=== PATIENT | male | born 1970 | race Caucasian/White ===

== ENCOUNTER 2017-05-25 23:16 | Emergency (ER) | payer BC ==
[2017-05-25 23:25] VITALS: BP 156/94
[2017-05-25] MEDS ORDERED: Albuterol/Ipratropium 3.0-0.5 MG/3 ML Neb Soln NEB ONE (23:59)
--- NOTE | 2017-05-26 01:48 | EDM.PDOC ---
ED HPI GENERAL MEDICAL PROBLEM - General Chief Complaint: Respiratory Problem Stated Complaint: SHORTNESS OF BREATH Time Seen by Provider: 05/25/17 23:44 Source of Information: Reports: Patient, RN Notes Reviewed - History of Present Illness INITIAL COMMENTS - FREE TEXT/NARRATIVE: 47-year-old male comes in with shortness of breath. He eats he was lying in bed about to go to sleep when he felt like he was much more short of breath than usual. He also has noticed recently that he does get short of breath quite easily with exertion. He has not been coughing any more than usual recently. No chest pain, abdominal pain nausea or vomiting. He believes that he is in relatively decent health although he admits he is no longer near as physically active as he used to be. 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 - Related Data Allergies Allergy/AdvReac Type Severity Reaction Status Date / Time No Known Allergies Allergy Verified 05/25/17 23:24 Home Meds: Home Meds Hydrochlorothiazide 12.5 mg PO DAILY 05/25/17 [History] Levothyroxine 75 mcg PO ACBREAKFAST 05/25/17 [History] carBAMazepine [Carbamazepine] 400 mg PO BEDTIME 05/25/17 [History] carBAMazepine [Carbamazepine] 500 mg PO BID 05/25/17 [History] Past Medical History Cardiovascular History: Reports: Hypertension Endocrine/Metabolic History: Reports: Hypothyroidism Social & Family History - Tobacco Use Smoking Status *Q: Never Smoker Second Hand Smoke Exposure: No - Recreational Drug Use Recreational Drug Use: No ED ROS GENERAL - Review of Systems Review Of Systems: See Below Constitutional: Denies: Fever, Chills, Diaphoresis HEENT: Denies: Sinus Problem, Throat Pain Respiratory: Reports: Shortness of Breath, Cough. Denies: Wheezing, Pleuritic Chest Pain Cardiovascular: Denies: Chest Pain (Occasional), Lightheadedness GI/Abdominal: Denies: Abdominal Pain, Nausea, Vomiting Musculoskeletal: Denies: Neck Pain, Shoulder Pain, Arm Pain Skin: Reports: No Symptoms Neurological: Reports: Dizziness (Mild gone) ED EXAM, GENERAL - Physical Exam Exam: See Below General Appearance: Alert, No Apparent Distress Throat/Mouth: Normal Inspection, Normal Oropharynx Head: No: Facial Swelling Neck: Supple, Full Range of Motion, Other. No: Lymphadenopathy (L), Lymphadenopathy (R) Respiratory/Chest: No Respiratory Distress (No JVD), Lungs Clear, Normal Breath Sounds Cardiovascular: Regular Rate, Rhythm GI/Abdominal: Soft, Non-Tender Back Exam: No: CVA Tenderness (L), CVA Tenderness (R) Extremities: Normal Inspection. No: Pedal Edema, Leg Pain, Increased Warmth, Redness Neurological: Alert, Oriented, No Motor/Sensory Deficits Skin Exam: Warm, Dry, Normal Color Course - Vital Signs Last Recorded V/S: Last Vital Signs Temp 97.3 F 05/25/17 23:22 Pulse 75 05/25/17 23:22 Resp 16 05/25/17 23:22 BP 156/94 H 05/25/17 23:22 Pulse Ox 94 L 05/26/17 00:00 - Orders/Labs/Meds Orders: Active Orders 24 hr Category Date Time Status EKG 12 Lead [EKG Documentation Completion] [RC] STAT Care 05/25/17 23:59 Active RT Aerosol Therapy [RC] ASDIRECTED Care 05/26/17 00:00 Active CXR [Chest 2V] [CR] Stat Exams 05/25/17 23:59 Taken Labs: Laboratory Tests 05/25/17 05/26/17 05/26/17 Range/Units 23:59 00:15 00:15 WBC 5.38 (4.23-9.07) K/mm3 RBC 4.38 L (4.63-6.08) M/mm3 Hgb 14.1 (13.7-17.5) gm/L Hct 41.0 (40.1-51.0) % MCV 93.6 H (79.0-92.2) fl MCH 32.2 (25.7-32.2) pg MCHC 34.4 (32.2-35.5) g/dl RDW Std Deviation 43.1 (35.1-43.9) fL Plt Count 201 (163-337) K/mm3 MPV 8.6 L (9.4-12.3) fl Neut % (Auto) 63.8 (34.0-67.9) % Lymph % (Auto) 20.6 L (21.8-53.1) % [place] % (Auto) 12.6 H (5.3-12.2) % Eos % (Auto) 2.4 (0.8-7.0) Baso % (Auto) 0.4 (0.1-1.2) % Neut # (Auto) 3.43 (1.78-5.38) K/mm3 Lymph # (Auto) 1.11 L (1.32-3.57) K/mm3 [place] # (Auto) 0.68 (0.30-0.82) K/mm3 Eos # (Auto) 0.13 (0.04-0.54) K/mm3 Baso # (Auto) 0.02 (0.01-0.08) K/mm3 D-Dimer, Quantitative < 0.19 L (0.19-0.59) mg/L Sodium 140 (136-145) mEq/L Potassium 3.8 (3.5-5.1) mEq/L Chloride 103 (98-107) mEq/L Carbon Dioxide 26 (21-32) mEq/L Anion Gap 14.8 (5-15) BUN 23 H (7-18) mg/dL Creatinine 1.0 (0.7-1.3) mg/dL Est Cr Clr Drug Dosing 100.23 mL/min Estimated GFR (MDRD) > 60 (>60) mL/min BUN/Creatinine Ratio 23.0 H (14-18) Glucose 102 (74-106) mg/dL Calcium 8.6 (8.5-10.1) mg/dL Total Bilirubin 0.2 (0.2-1.0) mg/dL AST 26 (15-37) U/L ALT 29 (16-63) U/L Alkaline Phosphatase 65 (46-116) U/L NT-Pro-B Natriuret Pep 28 (0-125) pg/mL Total Protein 7.0 (6.4-8.2) g/dl Albumin 3.7 (3.4-5.0) g/dl Globulin 3.3 gm/dL Albumin/Globulin Ratio 1.1 (1-2) Meds: Medications Discontinued Medications Generic Name Dose Route Start Last Admin Trade Name Freq PRN Reason Stop Dose Admin Albuterol/Ipratropium 3 ml 05/25/17 23:59 05/26/17 00:10 Duoneb 3.0-0.5 Mg/3 Ml NEB 05/26/17 00:00 3 ml ONETIME ONE Administration - Re-Assessments/Exams Free Text/Narrative Re-Assessment/Exam: 05/26/17 03:34 Of note when I initially walked into the room and patient is lying flat sats were only in the 91-92% range. When I did have him sit up and listen to his lungs they did climb to the 95-97% range. He does state that multiple family members including siblings and I believe one or 2 of his parents do suffer from sleep apnea and do use CPAP machines at night.. He states he has had increasing fatigue over the past year or 2. 05/26/17 03:35. D-dimer and other labs did come back relatively normal. EKG did not show acute changes chest x-ray normal. I am going to get him set up for a sleep study. He is moderately overweight and may have obesity hypoventilation syndrome and/or sleep apnea. Departure - Departure Time of Disposition: 01:45 Disposition: Home, Self-Care 01 Condition: Fair Clinical Impression: Dyspnea, paroxysmal nocturnal Fatigue Qualifiers: Fatigue type: unspecified Qualified Code(s): R53.83 - Other fatigue - Discharge Information Instructions: Shortness of Breath, [id number], Fatigue Referrals: Eldon Ambrose MD [Primary Care Provider] - Forms: ED Department Discharge Additional Instructions: Your heart and lungs checked out well this evening. Sleep study test. If you are not given that time upon discharge respiratory therapy will call you this morning for a time. [place] next as planned. Consider a healthy diet and regular exercise program to help improve your general health and well- being. Return to ED as needed if symptoms worsening in any way. - My Orders Last 24 Hours: My Active Orders 05/25/17 23:59 EKG 12 Lead [EKG Documentation Completion] [RC] STAT CXR [Chest 2V] [CR] Stat 05/26/17 00:00 RT Aerosol Therapy [RC] ASDIRECTED - Assessment/Plan Last 24 Hours: My Active Orders 05/25/17 23:59 EKG 12 Lead [EKG Documentation Completion] [RC] STAT CXR [Chest 2V] [CR] Stat 05/26/17 00:00 RT Aerosol Therapy [RC] ASDIRECTED
--- NOTE | 2017-05-26 06:56 | CR ---
Chest: Two views of the chest were obtained. Comparison: No previous chest x-ray. Heart size and mediastinum are within normal limits. Lungs are clear. Slight degenerative change is seen within the spine. Minimal scoliosis is also noted. Impression: 1. Incidental findings. Nothing acute is appreciated. Diagnostic code #2
== END 2017-05-26 02:17 | disposition home or self-care (01) ==
LOC: JD.ED 23:16
DX: R06.00 Dyspnea, unspecified (principal); R53.83 Other fatigue; I10 Essential (primary) hypertension; E03.9 Hypothyroidism, unspecified; Z79.899 Other long term (current) drug therapy
CPT/HCPCS: 36415; 71020; 71020-26; 80053; 83880; 85025; 85379; 93005; 94640; 99285-25

== ENCOUNTER 2017-06-28 08:47 | Emergency (ER) | payer BC ==
[2017-06-28 08:55] VITALS: BP 145/91
--- NOTE | 2017-06-28 09:39 | EDM.PDOCBH ---
ED HPI GENERAL MEDICAL PROBLEM - General Chief Complaint: Behavioral/Psych Stated Complaint: DEPRESSION Time Seen by Provider: 06/28/17 08:58 Source of Information: Reports: Patient History Limitations: Reports: Other (hesitant to provide history) - History of Present Illness INITIAL COMMENTS - FREE TEXT/NARRATIVE: The patient is a 47-year-old male with a history of a seizure disorder and hypothyroidism who comes to the emergency department with a chief complaint of feeling depressed. The patient is very reticent and withdrawn and it was quite difficult for me to obtain much history from him. He tells me that he's been feeling poorly for about 3 days now. States that he's feeling very depressed. He 's been having very disturbing thoughts, he is now willing to share details with me but states that they are sexual in nature. He's had very poor sleep. States that he is hardly slept since Thursday. He is feeling very down and sad. She feels like something is deeply wrong but has difficulty providing further details. States he's never felt like this before. He's never seen a psychiatrist or been on psychiatric medications. He doesn't identify any recent stressors or provoking factors. No recent illness. He lives with his brother with whom he states he has a good relationship and works on a farm. States that there has not been any particular work-related stress lately. Later, during the physical exam and the later discussion, he mentions various somatic fears. He mentions that an acquaintance had headaches and turned out to have brain cancer. Another person he knew felt a mass in her neck and it turned out to be cancer. He now feels like he has some discomfort in his neck and is also worried that his symptoms could be a sign of brain cancer. He also recounts stories to me of people he knew who saw doctors and then "dropped in the hallway" after being told that they were fine. And then he also became very tearful and states that he knew of couple of guys who shot himself. Upon further questioning, he states that he is not suicidal but worries that he could do something like that to harm himself if he were to get worse. He told his brother this morning that he was feeling sick and asked his brother to bring him to the emergency department. - Related Data Allergies Allergy/AdvReac Type Severity Reaction Status Date / Time No Known Allergies Allergy Verified 06/28/17 08:51 Home Meds: Home Meds Hydrochlorothiazide 12.5 mg PO DAILY 05/25/17 [History] Levothyroxine 75 mcg PO ACBREAKFAST 05/25/17 [History] carBAMazepine [Carbamazepine] 400 mg PO BEDTIME 05/25/17 [History] carBAMazepine [Carbamazepine] 500 mg PO BID 05/25/17 [History] LORazepam [Ativan] 0.5 mg PO BID #20 tablet 06/28/17 [Rx] QUEtiapine [SEROquel] 50 mg PO BEDTIME #30 tablet 06/28/17 [Rx] Past Medical History HEENT History: Reports: Impaired Vision Cardiovascular History: Reports: Hypertension Neurological History: Reports: Other (See Below) Other Neuro History: epilepsy Endocrine/Metabolic History: Reports: Hypothyroidism - Infectious Disease History Infectious Disease History: Reports: Chicken Pox Social & Family History - Tobacco Use Smoking Status *Q: Never Smoker Second Hand Smoke Exposure: No - Caffeine Use Caffeine Use: Reports: None - Recreational Drug Use Recreational Drug Use: No ED ROS GENERAL - Review of Systems Review Of Systems: See Below Constitutional: Reports: Malaise. Denies: Fever HEENT: Reports: No Symptoms Respiratory: Denies: Shortness of Breath Cardiovascular: Denies: Chest Pain Endocrine: Reports: Fatigue GI/Abdominal: Reports: No Symptoms Musculoskeletal: Reports: Neck Pain Skin: Reports: No Symptoms Neurological: Denies: Headache Psychiatric: Reports: Anxiety, Depression. Denies: Hallucinations ED EXAM, BEHAVIORAL HEALTH - Physical Exam Exam: See Below Exam Limited By: No Limitations General Appearance: Alert, Other (Withdrawn) Eye Exam: Bilateral Eye: EOMI, Normal Inspection, PERRL Ears: Normal External Exam Nose: Normal Inspection Throat/Mouth: Normal Inspection, Normal Voice, No Airway Compromise Head: Atraumatic, Normocephalic Neck: Normal Inspection, Supple, Non-Tender, Full Range of Motion Respiratory/Chest: No Respiratory Distress, Lungs Clear, Normal Breath Sounds, Chest Non-Tender Cardiovascular: Normal Peripheral Pulses, Regular Rate, Rhythm, No Murmur GI/Abdominal: Soft, Non-Tender, No Distention. No: Rebound Back Exam: Normal Inspection Extremities: Normal Inspection Neurological: Alert, CN II-XII Intact, Normal Cognition, No Motor/Sensory Deficits, Oriented x 3 Psychiatric: Alert, Depressed Mood, Flat Affect, Tearful, Poor Eye Contact, Withdrawn, Paranoid Thoughts Skin Exam: Warm, Dry, Intact, Normal color, No rash COURSE, BEHAVIORAL HEALTH COMP - Course Vital Signs: Last Vital Signs Temp 36.2 C 06/28/17 08:53 Pulse 65 06/28/17 08:53 Resp 16 06/28/17 08:53 BP 145/91 H 06/28/17 08:53 Pulse Ox 100 06/28/17 08:53 Orders, Labs, Meds: Laboratory Tests 06/28/17 06/28/17 06/28/17 Range/Units 09:46 09:46 09:46 WBC 4.77 (4.23-9.07) K/mm3 RBC 5.00 (4.63-6.08) M/mm3 Hgb 15.7 (13.7-17.5) gm/L Hct 46.0 (40.1-51.0) % MCV 92.0 (79.0-92.2) fl MCH 31.4 (25.7-32.2) pg MCHC 34.1 (32.2-35.5) g/dl RDW Std Deviation 42.6 (35.1-43.9) fL Plt Count 227 (163-337) K/mm3 MPV 8.4 L (9.4-12.3) fl Neut % (Auto) 75.5 H (34.0-67.9) % Lymph % (Auto) 13.8 L (21.8-53.1) % [place] % (Auto) 10.3 (5.3-12.2) % Eos % (Auto) 0.2 L (0.8-7.0) Baso % (Auto) 0.2 (0.1-1.2) % Neut # (Auto) 3.60 (1.78-5.38) K/mm3 Lymph # (Auto) 0.66 L (1.32-3.57) K/mm3 [place] # (Auto) 0.49 (0.30-0.82) K/mm3 Eos # (Auto) 0.01 L (0.04-0.54) K/mm3 Baso # (Auto) 0.01 (0.01-0.08) K/mm3 Sodium 140 (136-145) mEq/L Potassium 3.8 (3.5-5.1) mEq/L Chloride 100 (98-107) mEq/L Carbon Dioxide 29 (21-32) mEq/L Anion Gap 14.8 (5-15) BUN 13 (7-18) mg/dL Creatinine 1.1 (0.7-1.3) mg/dL Est Cr Clr Drug Dosing 91.12 mL/min Estimated GFR (MDRD) > 60 (>60) mL/min BUN/Creatinine Ratio 11.8 L (14-18) Glucose 102 (74-106) mg/dL Calcium 9.5 (8.5-10.1) mg/dL Total Bilirubin 0.5 (0.2-1.0) mg/dL AST 25 (15-37) U/L ALT 25 (16-63) U/L Alkaline Phosphatase 76 (46-116) U/L Total Protein 7.9 (6.4-8.2) g/dl Albumin 4.3 (3.4-5.0) g/dl Globulin 3.6 gm/dL Albumin/Globulin Ratio 1.2 (1-2) Free T4 0.97 (0.76-1.46) ng/dL TSH 3rd Generation 3.257 (0.358-3.74) uIU/mL Salicylates 1.6 L (2.8-20) mg/dL Urine Opiates Screen (NEGATIVE) Ur Buprenorphine Scrn (NEGATIVE) Ur Oxycodone Screen (NEGATIVE) Urine Methadone Screen (NEGATIVE) Ur Propoxyphene Screen (NEGATIVE) Acetaminophen 0 L (10-30) ug/mL Ur Barbiturates Screen (NEGATIVE) Ur Tricyclics Screen (NEGATIVE) Ur Phencyclidine Scrn (NEGATIVE) Ur Amphetamine Screen (NEGATIVE) U Methamphetamines Scrn (NEGATIVE) U Benzodiazepines Scrn (NEGATIVE) U Cocaine Metab Screen (NEGATIVE) U Marijuana (THC) Screen (NEGATIVE) Ethyl Alcohol 0.00 (0.00) gm% 06/28/17 Range/Units 11:03 WBC (4.23-9.07) K/mm3 RBC (4.63-6.08) M/mm3 Hgb (13.7-17.5) gm/L Hct (40.1-51.0) % MCV (79.0-92.2) fl MCH (25.7-32.2) pg MCHC (32.2-35.5) g/dl RDW Std Deviation (35.1-43.9) fL Plt Count (163-337) K/mm3 MPV (9.4-12.3) fl Neut % (Auto) (34.0-67.9) % Lymph % (Auto) (21.8-53.1) % [place] % (Auto) (5.3-12.2) % Eos % (Auto) (0.8-7.0) Baso % (Auto) (0.1-1.2) % Neut # (Auto) (1.78-5.38) K/mm3 Lymph # (Auto) (1.32-3.57) K/mm3 [place] # (Auto) (0.30-0.82) K/mm3 Eos # (Auto) (0.04-0.54) K/mm3 Baso # (Auto) (0.01-0.08) K/mm3 Sodium (136-145) mEq/L Potassium (3.5-5.1) mEq/L Chloride (98-107) mEq/L Carbon Dioxide (21-32) mEq/L Anion Gap (5-15) BUN (7-18) mg/dL Creatinine (0.7-1.3) mg/dL Est Cr Clr Drug Dosing mL/min Estimated GFR (MDRD) (>60) mL/min BUN/Creatinine Ratio (14-18) Glucose (74-106) mg/dL Calcium (8.5-10.1) mg/dL Total Bilirubin (0.2-1.0) mg/dL AST (15-37) U/L ALT (16-63) U/L Alkaline Phosphatase (46-116) U/L Total Protein (6.4-8.2) g/dl Albumin (3.4-5.0) g/dl Globulin gm/dL Albumin/Globulin Ratio (1-2) Free T4 (0.76-1.46) ng/dL TSH 3rd Generation (0.358-3.74) uIU/mL Salicylates (2.8-20) mg/dL Urine Opiates Screen Negative (NEGATIVE) Ur Buprenorphine Scrn Negative (NEGATIVE) Ur Oxycodone Screen Negative (NEGATIVE) Urine Methadone Screen Negative (NEGATIVE) Ur Propoxyphene Screen Negative (NEGATIVE) Acetaminophen (10-30) ug/mL Ur Barbiturates Screen Negative (NEGATIVE) Ur Tricyclics Screen Negative (NEGATIVE) Ur Phencyclidine Scrn Negative (NEGATIVE) Ur Amphetamine Screen Negative (NEGATIVE) U Methamphetamines Scrn Negative (NEGATIVE) U Benzodiazepines Scrn Negative (NEGATIVE) U Cocaine Metab Screen Negative (NEGATIVE) U Marijuana (THC) Screen Negative (NEGATIVE) Ethyl Alcohol (0.00) gm% Re-Assessment/Re-Exam: Labs unremarkable. Video consult completed with Dr. Diaz. Dr. Diaz feels the patient is safe for discharge. He recommends starting Seroquel 50 mg at bedtime and also a short-term prescription for Ativan 0.5 mg twice a day. I discussed this with the patient as well. He is to follow-up with his primary doctor and also to call to schedule an appointment to follow-up with psychiatry clinic here. Discussed return precautions. Patient understood. Departure - Departure Time of Disposition: 11:15 Disposition: Home, Self-Care 01 Clinical Impression: Anxiety about health Depression Qualifiers: Depression Type: other depression Qualified Code(s): F32.89 - Other specified depressive episodes - Discharge Information Prescriptions: LORazepam [Ativan] 0.5 mg PO BID #20 tablet QUEtiapine [SEROquel] 50 mg PO BEDTIME #30 tablet Instructions: Insomnia Referrals: Eldon Ambrose MD [Primary Care Provider] - Forms: ED Department Discharge Additional Instructions: 1. Take Seroquel (quetiapine) at night as prescribed. This medication may be continued by your primary doctor if it is helpful. 2. Take lorazepam (ativan) as prescribed. This will help you feel calm and may also help you with sleep. This is a short-term medication that Dr. Diaz recommends to help you over the next several days until you're feeling better. 3. Follow up with Dr. Ambrose as soon as possible for further care, ideally this week. You may also follow up with psychiatry clinic at the hospital as needed - call [phone] to schedule. 4. Please return to the Emergency Department any time for any new or worsening symptoms, including if you're feeling unsafe.
[2017-06-28 10:22] LABS: ACETAMINOPHEN 0 ug/mL (10-30)
--- NOTE | 2017-06-29 11:35 | CONS ---
CONSULTING PHYSICIAN: Lino Diaz MD DATE OF CONSULTATION: 06/28/2017 IDENTIFICATION: The patient is a 47-year-old male, who presents to the [facility] Emergency Room in [place], [place]. He is seen for psychiatric consult. CHIEF COMPLAINT: "I just don't feel good, you know, overall." HISTORY OF PRESENT ILLNESS: The patient is a 47-year-old male, reports that he has been experiencing depressed mood, "for about the last 3 days." He states that he is "just sad and depressed" at the moment and he notes that while he struggles with up and down mood, it is actually going on "for years," things have worsened, particularly over the past few days. The patient states he is unable to sleep and his mind will not shut down. He endorses a lot of racing thoughts, rumination, some lonely feelings, "a little bit of anxiety" too. He states that while there has not been anything going on in his personal life, it has been upsetting that he knows, "there were 2 suicides in the town last week." He states that he currently resides in [place] and did not know the individuals, but he states "I just do not want that to happen to me." He denies any suicidal or homicidal ideation. He denies any psychotic, delusional, or paranoid symptoms, but he does note that since he has been feeling more depressed and anxious and a little bit lonely, he just does not want things to get worse. He states this is especially so because he has a hard time slowing his mind down lately. He has good interest in things, but he has lack of energy and lack of appetite for the past 6 months. He notes, "I feel bloated" a lot. He does state that he has a history of hypothyroidism as well as seizure disorder, but he notes his last seizure was back in 2006. Again, he is denying any suicidal or homicidal. He denying any illicit substance use or excessive alcohol use complicating his clinical picture. He states if he could get something to help him with his racing thoughts and ruminations and his mood, he expects he would feel better. He does report that he has guns in the house, but they are under lock and roa and is again emphasizing he is not having any suicidal ideation whatsoever. He lives with his brother who is also the individual who brought him into the emergency room today and his brother will be able to watch him. The patient does not feel he needs hospitalization at this point in time but again rather wants to get help for his excessive worries and low mood and anxiety. MEDICATIONS: At time of presentation: 1. Carbamazepine. 2. Levothyroxine. ALLERGIES: No known drug allergies. PAST MEDICAL HISTORY: 1. Seizure disorder, grand mal type. Last seizure in 2006, was diagnosed with this condition in 1986. 2. Hypothyroidism. 3. Hypertension. REVIEW OF SYSTEMS: Aside from neuro, endocrine, cardiovascular, all other major organ systems are negative at this point in time for acute difficulties or complications. FAMILY PSYCHIATRIC AND CD HISTORY: The patient reports he had a paternal aunt who had a history of mental health issues, but he did not know the specifics. She is now. PAST PSYCHIATRIC AND CD HISTORY: Essentially negative. The patient denies any previous psychiatric hospitalizations, chemical dependency treatments, previous suicide attempts, self-injurious behaviors, or eating disorder history. Denies any abuse issues. He has never been on any psychiatric medications. His primary MD is Dr. Ambrose at [facility]. SOCIAL HISTORY: The patient was born and raised in [place], [place]. He is the 7th of 8 siblings, having 5 sisters and 2 brothers. The patient's parents were throughout his childhood and adolescence. Father was a daugherty. Mother was a homemaker. The patient's highest level of education is high school diploma. 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 He has never been , not involved in any current relationships. He does not have any children. Describes his sexual predisposition as heterosexual. Again he lives in [place], [place] with his brother. He denies any prior services or current legal difficulties. He is raised Yarsanism. He enjoys fishing in his spare time. MENTAL STATUS EXAM: The patient is a 47-year-old soft-spoken white male in no apparent distress. Speech is regular rate and rhythm. The patient is cognitively oriented. Psychomotor activity is within normal limits. There is no abnormal motor movements or tics observed. Gait is steady. Station is normal. Mood is depressed and "a little anxious." Affect is consistent with stated mood, somewhat restrictive but cooperative overall for the purposes of the emergency room consult. There is no behavioral or stated evidence of acute suicidal or homicidal ideation or acute psychotic, delusional, or paranoid symptoms. Thought processes are significant for racing thoughts and ruminations. There are no manic symptoms, loose associations evident. Judgment and insight appear unimpaired at this point in time. Motivation for help is good. VITAL SIGNS: 145/91, 65, 16, 36.2 degrees Celsius. IMPRESSION: [place] I: 1. Major depressive disorder F32.2. 2. Anxiety disorder, NOS F41.9. [place] II: None. [place] III: 1. Seizure disorder grand mal type. 2. Hypothyroidism. 3. History of hypertension. [place] IV: Moderate to severe. [place] V: 60. PLAN: 1. Begin trial of Ativan 0.5 mg b.i.d. short-term for anxiety reduction. 2. Begin Seroquel 50 mg at bedtime to help reduce racing thoughts and ruminations as well as to help with sleep initiation and maintenance and anxiety reduction and for mood as well. 3. Recommend TSH level. 4. Recommend following up with his primary MD and Outpatient Psychiatry within 1-2 weeks to assess his overall function, efficacy of his newly initiated psychiatric medication regimen. 5. Patient was apprised of benefits and side effects of his proposed treatment regimen. He acknowledges his understanding and he had no further questions by the end of the interview session. 6. We will continue to follow up with the patient on an as-needed basis while he remains in the emergency room. 7. We will follow up with the patient sooner if any complications in the interim. 8. Crisis plan is in place. MMODAL /[id number]
== END 2017-06-28 11:30 | disposition home or self-care (01) ==
LOC: JD.ED 08:47
DX: F32.89 Other specified depressive episodes (principal); F41.9 Anxiety disorder, unspecified; E03.9 Hypothyroidism, unspecified; I10 Essential (primary) hypertension; Z79.899 Other long term (current) drug therapy
CPT/HCPCS: 36415; 80053; 80306; 84439; 84443; 85025; 99285; G0480; 99283

== ENCOUNTER 2018-11-11 21:05 | Emergency (ER) | payer BC ==
[2018-11-11 21:15] VITALS: BP 144/87
[2018-11-11] MEDS ORDERED: Ketorolac 60 MG/2 ML SDV IM ONE (21:35)
--- NOTE | 2018-11-11 21:41 | EDM.PDOC ---
ED HPI GENERAL MEDICAL PROBLEM - General Source of Information: Reports: Patient History Limitations: Reports: No Limitations - History of Present Illness Onset Date: 07/31/18 Onset Time: 12:00 Duration: Intermittent Location: Reports: Head Quality: Reports: Ache Severity: Mild Improves with: Reports: None Worsens with: Reports: None Associated Symptoms: Reports: Headaches. Denies: Confusion, Chest Pain, Cough, Fever/Chills, Shortness of Breath Head Pain Score (Numeric/FACES): 5 <Mary Rush - Last Filed: 11/11/18 21:36> <Lino Bray - Last Filed: 11/11/18 22:20> - General Chief Complaint: Neurological Problem Stated Complaint: PRESSURE ON HEAD GETTING WORSE Time Seen by Provider: 11/11/18 21:16 - History of Present Illness INITIAL COMMENTS - FREE TEXT/NARRATIVE: 48 y/o male presents to ER with cc "head pressure for the past 3 months." He states he has had intermittent occipital pressure and tension on the right side of his neck. He denies any fever, chills, blurred vision, nausea, vomiting. He reports this is NOT the worse headache of his life. He states he saw his PCP but nothing was done for it. He has NOT taken anything for his symptoms. He has a history of seizure, HTN and hypothyroidism. (Mary Rush) - Related Data Allergies Allergy/AdvReac Type Severity Reaction Status Date / Time No Known Allergies Allergy Verified 11/11/18 21:15 Home Meds: Home Meds Hydrochlorothiazide 12.5 mg PO DAILY 05/25/17 [History] Levothyroxine 88 mcg PO ACBREAKFAST 05/25/17 [History] carBAMazepine [Carbamazepine] 400 mg PO BEDTIME 05/25/17 [History] carBAMazepine [Carbamazepine] 500 mg PO BID 05/25/17 [History] Past Medical History HEENT History: Reports: Impaired Vision Cardiovascular History: Reports: Hypertension Neurological History: Reports: Other (See Below) Other Neuro History: epilepsy Endocrine/Metabolic History: Reports: Hypothyroidism - Infectious Disease History Infectious Disease History: Reports: Chicken Pox <Mary Rush - Last Filed: 11/11/18 21:36> Social & Family History - Tobacco Use Smoking Status *Q: Never Smoker - Caffeine Use Caffeine Use: Reports: None - Recreational Drug Use Recreational Drug Use: No <Mary Rush - Last Filed: 11/11/18 21:36> ED ROS GENERAL - Review of Systems Constitutional: Denies: Fever, Chills, Night Sweats, Decreased Appetite HEENT: Denies: Eye Pain, Sinus Problem, Throat Pain, Vision Change Respiratory: Denies: Shortness of Breath Cardiovascular: Denies: Chest Pain Endocrine: Reports: Fatigue GI/Abdominal: Reports: No Symptoms : Reports: No Symptoms Musculoskeletal: Reports: Neck Pain Skin: Reports: No Symptoms Neurological: Reports: Headache, Seizure. Denies: Confusion, Dizziness, Numbness, Syncope, Trouble Speaking, Difficulty Walking, Weakness Psychiatric: Reports: No Symptoms Hematologic/Lymphatic: Reports: No Symptoms Immunologic: Reports: No Symptoms <Mary Rush Last Filed: 11/11/18 21:36> - Review of Systems Review Of Systems: See Below <Lino Bray - Last Filed: 11/11/18 22:20> - Physical Exam Exam: See Below General Appearance: Alert, WD/WN, No Apparent Distress Eye Exam: Bilateral Eye: EOMI, PERRL Ears: Normal External Exam, Normal Canal, Hearing Grossly Normal, Normal TMs Nose: Normal Inspection, Normal Mucosa, No Blood Throat/Mouth: Normal Inspection, Normal Lips, Normal Teeth, Normal Gums, Normal Oropharynx, Normal Voice, No Airway Compromise Head Exam: Atraumatic, Normocephalic Neck: Normal Inspection, Supple, Non-Tender, Full Range of Motion Respiratory/Chest: No Respiratory Distress, Lungs Clear, Normal Breath Sounds, No Accessory Muscle Use, Chest Non-Tender Cardiovascular: Normal Peripheral Pulses, Regular Rate, Rhythm, No Edema, No Gallop, No JVD, No Murmur, No Rub Neuro Exam (Abbreviated): Alert, Oriented, CN II-XII Intact, Normal Cognition, Normal Gait, Normal Reflexes, No Motor/Sensory Deficits Back Exam: Normal Inspection, Full Range of Motion Extremities: Normal Inspection, Normal Range of Motion, Non-Tender, No Pedal Edema, Normal Capillary Refill Psychiatric: Normal Affect, Normal Mood Skin Exam: Warm, Dry, Intact, Normal Color, No Rash <Mary Rush - Last Filed: 11/11/18 21:36> Course <Mary Rush Last Filed: 11/11/18 21:36> <Lino Bray - Last Filed: 11/11/18 22:20> - Vital Signs Last Recorded V/S: Last Vital Signs Temp 97.5 F 11/11/18 21:12 Pulse 68 11/11/18 21:12 Resp 18 11/11/18 21:12 BP 144/87 H 11/11/18 21:12 Pulse Ox 97 11/11/18 21:12 - Orders/Labs/Meds Meds: Medications Discontinued Medications Generic Name Dose Route Start Last Admin Trade Name Elvia PRN Reason Stop Dose Admin Ketorolac Tromethamine 60 mg 11/11/18 21:35 11/11/18 21:43 Toradol IM 11/11/18 21:36 60 mg ONETIME ONE Administration - Re-Assessments/Exams Free Text/Narrative Re-Assessment/Exam: 11/11/18 21:41 48 y/o male presents to ER with cc head pressure for the past 3 months. I don' t feel he needs a head CT at this time. He received Toradol and his condition improved. I will discharge home with instructions to follow up with his PCP. Instructed to return to the ER for any new or acute worsening symptoms. He verbalized understanding and is comfortable with plan for discharge. He is stable at time of discharge. Differential diagnosis include but are not limited to Brain aneurysm, TIA, sinus headache, tension headache. 11/11/18 21:43 (Mary Rush) 11/11/18 22:19 I examined the patient myself and I agreed with Mary's assessment and plan. ( Lino Bray) Departure - Departure Time of Disposition: 21:44 - Discharge Information *PRESCRIPTION DRUG MONITORING PROGRAM REVIEWED*: Not Applicable *COPY OF PRESCRIPTION DRUG MONITORING REPORT IN PATIENT OLEGARIO: Not Applicable <Mary Rush - Last Filed: 11/11/18 21:36> <Lino Bray - Last Filed: 11/11/18 22:20> - Departure Disposition: Home, Self-Care 01 Clinical Impression: Tension type headache Qualifiers: Headache chronicity pattern: unspecified pattern Intractability: not intractable Qualified Code(s): G44.209 - Tension-type headache, unspecified, not intractable - Discharge Information Instructions: Tension Headache, Adult, [id number] Referrals: Eldon Ambrose MD [Primary Care Provider] - Forms: ED Department Discharge Additional Instructions: You have been diagnosis with tension headache/pressure. This could be due to allergies or sinus in addition to stress. I recommend you take Tylenol or Ibuprofen for pain. Follow up with your PCP. Return to the ER for any new or acute worsening symptoms.
== END 2018-11-11 22:00 | disposition home or self-care (01) ==
LOC: JD.ED 21:05
DX: G44.209 Tension-type headache, unspecified, not intractable (principal)
CPT/HCPCS: 96372; 99283; J1885

== ENCOUNTER 2020-06-23 19:51 | Emergency (ER) | payer BC ==
[2020-06-23 20:04] VITALS: BP 144/91; PULSE 65
--- NOTE | 2020-06-23 20:56 | EDM.PDOC ---
ED HPI GENERAL MEDICAL PROBLEM - General Chief Complaint: Skin Complaint Stated Complaint: ON ANTIBIOTICS WHITE SORE IN MOUTH Time Seen by Provider: 06/23/20 20:03 Source of Information: Reports: Patient History Limitations: Reports: No Limitations - History of Present Illness INITIAL COMMENTS - FREE TEXT/NARRATIVE: This is a 50-year-old male. He comes this evening because he is on the treatment for H. pylori and taking metronidazole and tetracycline along with bismuth and a protein pump. He noted today that he has a small white patch on his right buccal mucosa. It is not painful. He has had no difficulty in swallowing no fever no sore throat no other acute symptoms. 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 He does not appear to be in any distress. - Related Data Allergies Allergy/AdvReac Type Severity Reaction Status Date / Time No Known Allergies Allergy Verified 06/23/20 20:04 Home Meds: Home Meds Hydrochlorothiazide 12.5 mg PO DAILY 05/25/17 [History] Levothyroxine 88 mcg PO ACBREAKFAST 05/25/17 [History] carBAMazepine [Carbamazepine] 400 mg PO BEDTIME 05/25/17 [History] carBAMazepine [Carbamazepine] 500 mg PO BID 05/25/17 [History] Past Medical History HEENT History: Reports: Impaired Vision Cardiovascular History: Reports: Hypertension Gastrointestinal History: Reports: Other (See Below) Other Gastrointestinal History: H.Pylori Neurological History: Reports: Other (See Below) Other Neuro History: epilepsy Endocrine/Metabolic History: Reports: Hypothyroidism - Infectious Disease History Infectious Disease History: Reports: Chicken Pox Social & Family History - Tobacco Use Tobacco Use Status *Q: Never Tobacco User Second Hand Smoke Exposure: No - Caffeine Use Caffeine Use: Reports: None - Recreational Drug Use Recreational Drug Use: No ED ROS GENERAL - Review of Systems Review Of Systems: See Below Constitutional: Denies: Fever, Chills HEENT: Reports: No Symptoms. Denies: Throat Pain, Throat Swelling Respiratory: Denies: Shortness of Breath, Cough Cardiovascular: Reports: No Symptoms Endocrine: Reports: No Symptoms GI/Abdominal: Denies: Abdominal Pain, Diarrhea, Nausea, Vomiting : Reports: No Symptoms Musculoskeletal: Reports: No Symptoms Skin: Reports: No Symptoms Neurological: Reports: No Symptoms Psychiatric: Reports: No Symptoms Hematologic/Lymphatic: Reports: No Symptoms ED EXAM, SKIN/RASH Exam: See Below Exam Limited By: No Limitations General Appearance: Alert, WD/WN, No Apparent Distress Eye Exam: Bilateral Eye: Normal Inspection Ears: Normal External Exam, Normal Canal, Normal TMs Nose: Normal Inspection Throat/Mouth: Normal Inspection, Normal Lips, Normal Oropharynx, Normal Voice, No Airway Compromise, Other (He has a small white plaque on the right buccal mucosa. It does not appear to be tender. It almost appears to be like a small fungal plaque on that buccal mucosa. Looking at his other buccal mucosa his lips and the inner mucosa of his lips there is no other lesions. He denies any tenderness to this plaque.) Head: Normocephalic Neck: Normal Inspection, Supple Respiratory/Chest: No Respiratory Distress Back Exam: Full Range of Motion Extremities: Normal Inspection, Normal Range of Motion Neurological: Alert, Oriented Psychiatric: Normal Affect, Normal Mood Skin: Warm, Dry Course - Vital Signs Last Recorded V/S: Last Vital Signs Temp 97.8 F 06/23/20 20:02 Pulse 65 06/23/20 20:02 Resp 16 06/23/20 20:02 BP 144/91 H 06/23/20 20:02 Pulse Ox 97 06/23/20 20:02 Departure - Departure Time of Disposition: 20:54 Disposition: Home, Self-Care 01 Condition: Good Clinical Impression: Oral candidiasis - Discharge Information *PRESCRIPTION DRUG MONITORING PROGRAM REVIEWED*: Not Applicable *COPY OF PRESCRIPTION DRUG MONITORING REPORT IN PATIENT OLEGARIO: Not Applicable Instructions: Oral Thrush, Adult, [id number] Referrals: Eldon Ambrose MD [Primary Care Provider] - Additional Instructions: Continue with your treatment for the H. pylori, if you start seeing more lesions plaques like you have on that inner right cheek stop taking the antibiotics and see your family doctor, if you develop any lesions that are painful stop taking the antibiotics and see your family doctor, in the meantime get some vanilla cultured yogurt that has the active cultures in it and take a tablespoon 4 times a day swish and swallow inside your mouth this will help get rid of the fungal infection that s causing this plaque and prevent any further fungal infections or plaques from developing, return to the ER if needed. I have given you a handout from the [facility] regarding Jerman Carlos syndrome. This is not to scare you but to inform you that normally the lesions are very painful and it is hard to swallow and you develop a fever prior to this so you can be on the look out for these type of symptoms. I believe that the white spot in your inner right cheek is actually an overgrowth of fungus due to the antibiotics knocking down the good bacteria in your mouth. And the vanilla cultured yogurt restores that good bacteria and should get rid of the overgrowth of fungus. Sepsis Event Note (ED) - Evaluation Sepsis Screening Result: No Definite Risk - Focused Exam Vital Signs: Vital Signs Temp Pulse Resp BP Pulse Ox 06/23/20 20:02 97.8 F 65 16 144/91 H 97
== END 2020-06-23 21:07 | disposition home or self-care (01) ==
LOC: JD.ED 19:51
DX: B37.0 Candidal stomatitis (principal); I10 Essential (primary) hypertension; E03.9 Hypothyroidism, unspecified; Z79.899 Other long term (current) drug therapy
CPT/HCPCS: 99282; 99283